=== PATIENT | male | born 1940 | race Caucasian/White ===

== ENCOUNTER 2018-05-12 20:51 | Emergency (ER) | payer OTHER ==
[~2018-05-12] VITALS: Ht 172.7 cm; Wt 77.8 kg
[~2018-05-12 20:51] MED LIST: ALEVE220 MG PO; ASPIRIN EC325 MG PO; ASPIRIN325 MG PO; CELEXA40 MG PO; CLOPIDOGREL75 MG PO; COUMADIN4 MG PO; CRESTOR40 MG PO; FUROSEMIDE40 MG PO; HYDROCHLOROTHIA25 MG PO; LIPITOR80 MG PO; LISINOPRIL40 MG PO; LIVALO2 MG PO; LOPRESSOR100 M1 PO; METOPROLOL TAR100 MG PO; NITROSTAT0.4 MG SL; PLAVIX75 MG PO; SORE THROAT MM; TRAMADOL HCL50 MG PO; XARELTO20 MG PO; [UNRECOGNIZED DRUG - REMARK]
[2018-05-12 21:39] LABS: BASOPHIL (%) 0.5 % (0-1); BASOPHIL COUNT 0.1 K/uL (0-0.1); EOSINOPHIL COUNT 0.2 K/uL (0-0.3); HEMATOCRIT 44.4 % (38.0-50.0); HEMOGLOBIN 15.2 G/DL (12.5-16.6); IMMATURE GRANULOCYTE (%) 0.5 % (0.0-0.7); LYMPHOCYTE (%) 28.7 % (15-42); LYMPHOCYTE COUNT 2.7 K/uL (1.0-2.8); MCH 33.1 PG (29.0-34.0); MCHC 34.2 G/DL (30.0-36.0); MCV 96.7 FL (86-99); MONOCYTE (%) 8.5 % (3-12); MONOCYTE COUNT 0.8 K/uL (0-0.8); NEUTROPHIL (%) 59.8 % (45-76); NEUTROPHIL COUNT 5.5 K/uL (1.8-6.4); PLATELET COUNT 260 K/uL (156-360); RBC DIS.WIDTH-CV 13.6 % (11.8-14.6); RBC DIS.WIDTH-SD 48.8 % (39-53); RED BLOOD COUNT 4.59 M/uL (4.00-5.50); WHITE BLOOD COUNT 9.3 K/uL (4.1-10.2)
[2018-05-12 21:45] LABS: INTER. NORMALIZED RATIO 2.6
[2018-05-12 21:48] LABS: PTT 38.2 SEC (25-37)
[2018-05-12 21:52] LABS: CHLORIDE 96 mEq/L (99-109); POTASSIUM 3.7 mEq/L (3.7-5.4); SODIUM 139 mEq/L (136-147)
[2018-05-12 21:53] LABS: MAGNESIUM 2.3 mg/dL (1.3-2.7)
[2018-05-12 21:55] LABS: TOTAL PROTEIN 6.9 g/dL (6.4-8.3)
[2018-05-12 21:58] LABS: SERUM ETHYL ALCOHOL 43 mg/dL
[2018-05-12 21:59] LABS: CREATININE 1.5 mg/dL (0.6-1.3); GFR ESTIMATE (CALCULATED) 48 mL/min/ (58.99-99999)
[2018-05-12 22:00] LABS: AST (GOT) 30 IU/L (2-34)
[2018-05-12 22:04] LABS: TROP-I INTERPRETATION NEGATIVE; TROPONIN-I < 0.01 ng/mL (0.0-0.30)
[2018-05-12 22:16] LABS: GLUCOSE 146 mg/dL (70-99)
[2018-05-12 22:19] LABS: ALKALINE PHOSPHATASE 125 IU/L (3-129)
[2018-05-12 22:21] LABS: UREA NITROGEN (BUN) 19 mg/dL (9-23)
[2018-05-12 22:22] LABS: ALT (GPT) 28 IU/L (3-49)
[2018-05-13 00:32] VITALS: BP 116/80
== END 2018-05-13 00:32 | disposition home or self-care (01) ==
LOC: EME → EDBD 20:51 → EME 05-13 00:32
PROVIDERS: Emergency Medicine
DX: R55 Syncope and collapse (principal); R91.1 Solitary pulmonary nodule; R07.89 Other chest pain; I48.91 Unspecified atrial fibrillation; I10 Essential (primary) hypertension; E78.5 Hyperlipidemia, unspecified; I25.2 Old myocardial infarction; Z95.1 Presence of aortocoronary bypass graft; Z95.5 Presence of coronary angioplasty implant and graft; Z86.73 Personal history of transient ischemic attack (TIA), and cerebral infarction without residual deficits; Z79.01 Long term (current) use of anticoagulants; Z87.891 Personal history of nicotine dependence
CPT/HCPCS: 70450; 71250; 80053; 81003; 83735; 84484; 85025; 85610; 85730; 93005; 99281; 99285; G0480